=== PATIENT | female | born 1965 | race Caucasian/White ===

== ENCOUNTER 2025-10-27 16:00 | Emergency (ER) | payer OTHER ==
[~2025-10-27] VITALS: Ht 160 cm; Wt 66.2 kg
[2025-10-27 16:24] VITALS: TEMP 97.9
[2025-10-27] MEDS ORDERED: IV NS 0.9% 250 ML IV ONE (16:56)
[2025-10-27] MEDS ORDERED: IOHEXOL-350 100 ML VIAL IV ONE (16:56)
[2025-10-27] MEDS ORDERED: CT SWABBABLE VALVE TRANS SET 1 EA INFUS.SET MC ONE (16:56)
[2025-10-27] MEDS: IV NS 0.9% 1,000 ML BAG IV ONE (17:00)
[2025-10-27] MEDS ORDERED: ONDANSETRON HCL/PF 4 MG/2 ML VIAL ONE ×2 (17:09→19:54)
[2025-10-27] MEDS ORDERED: MECLIZINE HCL 25 MG TABLET ONE (17:09)
[2025-10-27 17:12] LABS: PLATELET COUNT (AUTO) 145 K/uL (150-450); RED BLOOD CELL COUNT(AUTO) 4.43 MIL/uL (4.0-5.2); RED CELL DISTRIBUTION WIDTH 13.7 % (11.5-15.0); WHITE BLOOD COUNT (AUTO) 5.3 K/uL (4.3-11.0)
[2025-10-27] MEDS: ONDANSETRON HCL/PF - ER 4 MG/2 ML VIAL IV ONE ×2 (17:12→19:57)
[2025-10-27 17:20] LABS: CALCIUM, SERUM 8.9 mg/dL (8.5-10.1); CREATININE 0.7 mg/dL (0.6-1.3); SODIUM SERUM 139 mmol/L (136-145); UREA NITROGEN, BLOOD 17 mg/dL (7-18)
[2025-10-27] MEDS: MECLIZINE HCL 12.5 MG TABLET PO ONE (17:50)
[2025-10-27 19:14] LABS: APPEARANCE,URINE CLEAR (CLEAR); BLOOD, URINE NEGATIVE Ery/uL (NEGATIVE); LEUKOCYTE ESTERASE ,URINE NEGATIVE (NEGATIVE); NITRITE, URINE NEGATIVE (NEGATIVE); UGLUCOSE NEGATIVE (NEGATIVE)
[2025-10-27 19:21] LABS: ADD URINE CULTURE YES; SQUAMOUS EPITHELIAL CELL,UR Moderate /HPF (None Seen)
[2025-10-27] MEDS ORDERED: ONDA4TAB5 PO (20:27)
[2025-10-27] MEDS ORDERED: MECL-159 PO (20:27)
[2025-10-27 20:39] VITALS: BP 130/76; O2SAT 98
== END 2025-10-27 20:55 | disposition home or self-care (01) ==
LOC: ER 16:00
DX: H81.399 Other peripheral vertigo, unspecified ear (principal); R51.9 Headache, unspecified; R07.89 Other chest pain; R10.20 Pelvic and perineal pain unspecified side
CPT/HCPCS: 99285; 70498; 96374; 96361; 93005; 70496; 85025; 80048; 87086; 81001; 36415; 84484; 70450; 96376; J8597; J2405 ×4; J7030; J7050; Q9967